=== PATIENT | female | born 1955 | race Caucasian/White ===

== ENCOUNTER → 2021-03-15 | Outpatient (CLI) | payer MEDICARE ==
[~2021-03-15] MED LIST: DOXYCYCLINE HY100 M2 PO; PREDNISONE 20 M20 MG PO
== END ==
LOC: US 15:30 → KOH-I 15:30
DX: I82.4Z1 Acute embolism and thrombosis of unspecified deep veins of right distal lower extremity (principal); R60.0 Localized edema
CPT/HCPCS: 93971